=== PATIENT | male | born 1995 | race Native Hawaiian/Other Pacific Islander ===

== ENCOUNTER 2018-11-30 22:44 | Emergency (ER) | payer OTHER ==
[~2018-11-30] VITALS: Ht 172.7 cm; Wt 72.6 kg
[2018-11-30 23:05] VITALS: BP 150/80; TEMP 98.2
== END 2018-11-30 23:01 | disposition home or self-care (01) ==
LOC: ED 22:51
DX: F41.9 Anxiety disorder, unspecified (principal)
CPT/HCPCS: 99281

== ENCOUNTER 2018-12-02 19:36 | Emergency (ER) | payer OTHER ==
[~2018-12-02] VITALS: Ht 172.7 cm; Wt 72.6 kg
[2018-12-02 20:15] LABS: PLATELET COUNT 360 K/uL (142-355)
[2018-12-02 20:37] LABS: SODIUM 137 mmol/L (136-145)
[2018-12-06 19:35] VITALS: BP 129/82; TEMP 98.2
== END 2018-12-06 19:35 | disposition other institution (70) ==
LOC: ED 19:36
PROVIDERS: Family Medicine
DX: R45.851 Suicidal ideations (principal)
CPT/HCPCS: 36415; 80053; 80307; 80320; 80329; 81000; 85027; 93005; 99285

== ENCOUNTER 2019-04-21 02:11 | Emergency (ER) | payer OTHER ==
[~2019-04-21] VITALS: Ht 172.7 cm; Wt 72.6 kg
[2019-04-21 02:56] VITALS: BP 138/73; TEMP 98.2
== END 2019-04-21 02:56 | disposition home or self-care (01) ==
LOC: ED 02:11
PROC: 2W3QX1Z Immobilization of Right Lower Leg using Splint (ICD-10-PCS; principal; 2019-04-21)
DX: S92.411A Displaced fracture of proximal phalanx of right great toe, initial encounter for closed fracture (principal); W51.XXXA Accidental striking against or bumped into by another person, initial encounter
CPT/HCPCS: 99283

== ENCOUNTER 2019-07-05 08:04 | Emergency (ER) | payer OTHER ==
[~2019-07-05] VITALS: Ht 172.7 cm; Wt 81.6 kg
[2019-07-05 08:23] VITALS: TEMP 98.1
[2019-07-05] MEDS ORDERED: TRAZODONE HYDRO50 MG PO (08:35)
[2019-07-05] MEDS ORDERED: LEXAPRO10 MG (08:36)
[2019-07-05 09:39] VITALS: BP 138/68
== END 2019-07-05 09:40 | disposition home or self-care (01) ==
LOC: ED 08:04
DX: S09.90XA Unspecified injury of head, initial encounter (principal); S02.40DA Maxillary fracture, left side, initial encounter for closed fracture; S02.85XA Fracture of orbit, unspecified, initial encounter for closed fracture; W22.8XXA Striking against or struck by other objects, initial encounter
CPT/HCPCS: 96372; 99283; J1885

== ENCOUNTER 2020-06-29 15:07 | Emergency (ER) | payer OTHER ==
[~2020-06-29] VITALS: Ht 172.7 cm; Wt 81.6 kg
[~2020-06-29 15:07] MED LIST: LEXAPRO10 MG; TRAZODONE HYDRO50 MG PO
[2020-06-29 15:16] VITALS: BP 132/73; TEMP 99.5
== END 2020-06-29 16:31 | disposition home or self-care (01) ==
LOC: ED 15:07
DX: J06.9 Acute upper respiratory infection, unspecified (principal); F17.210 Nicotine dependence, cigarettes, uncomplicated
CPT/HCPCS: 87502; 87651; 99283

== ENCOUNTER 2021-06-12 14:40 | Emergency (ER) | payer OTHER ==
[~2021-06-12] VITALS: Ht 172.7 cm; Wt 81.6 kg
[2021-06-12 14:40] VITALS: TEMP 98.5
[2021-06-12 15:13] LABS: PLATELET COUNT 326 K/uL (142-355)
[2021-06-12 15:22] LABS: POTASSIUM 3.3 mmol/L (3.6-5.2)
[2021-06-12 16:00] VITALS: BP 122/68
== END 2021-06-12 17:20 ==
LOC: ED 14:40
PROVIDERS: Emergency Medicine
DX: T50.992A Poisoning by other drugs, medicaments and biological substances, intentional self-harm, initial encounter (principal); R10.13 Epigastric pain; E87.6 Hypokalemia; Y93.89 Activity, other specified; Y92.149 Unspecified place in prison as the place of occurrence of the external cause
CPT/HCPCS: 80053; 80307; 85027; 93005; 96372; 99283; J1885